=== PATIENT | female | born 1960 | race Caucasian/White ===

== ENCOUNTER 2017-07-27 05:12 | Emergency (ER) | payer MEDICAID ==
[2017-07-27] MEDS ORDERED: Sodium Chloride 0.9% 1,000 ML IV SCH (05:15)
[2017-07-27] MEDS ORDERED: Nitroglycerin/D5W 25 MG/250 ML BOTTLE ONE (05:21)
--- NOTE | 2017-07-27 05:22 | EDM.PDOC ---
<OfficerBinu - Last Filed: 07/27/17 06:30> ED HPI GENERAL MEDICAL PROBLEM - General Stated Complaint: MED[facility] Time Seen by Provider: 07/27/17 05:18 Source of Information: Reports: Patient, EMS, RN Notes Reviewed History Limitations: Reports: No Limitations - History of Present Illness INITIAL COMMENTS - FREE TEXT/NARRATIVE: 57-year-old female presents emergency department today via EMS services complaint chest pain. She states the chest pain started initially around 9 PM she described more of a heartburn feeling it resolved and then returned earlier this morning she did have nausea and vomiting she did feel short of breath is not diaphoretic does not use tobacco products does have a family history with her brother having myocardial infarction age 50. 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: - Past Surgical History HEENT Surgical History: Reports: Tonsillectomy Social & Family History - Family History HEENT: Reports: None Cardiac: Reports: IN Other Cardiac Family History: Dad and brother had IN Hematologic: Reports: Other (See Below) Other Hematologic Family History: Dad passed blood clot Immunologic: Reports: None Oncologic: Reports: None - Tobacco Use Smoking Status *Q: Never Smoker Second Hand Smoke Exposure: No - Caffeine Use Caffeine Use: Reports: Soda Other Caffeine Use: 4 cans of pop a day - Alcohol Use Days Per Week of Alcohol Use: 2 Number of Drinks Per Day: 6 Total Drinks Per Week: 12 - Recreational Drug Use Recreational Drug Use: No ED ROS GENERAL - Review of Systems Review Of Systems: See Below Constitutional: Reports: No Symptoms HEENT: Reports: No Symptoms Respiratory: Reports: Shortness of Breath Cardiovascular: Reports: Chest Pain GI/Abdominal: Reports: Abdominal Pain, Nausea, Vomiting : Reports: No Symptoms Musculoskeletal: Reports: No Symptoms Skin: Reports: No Symptoms Neurological: Reports: No Symptoms ED EXAM, GENERAL - Physical Exam Exam: See Below Free Text/Narrative:: General: Female mild discomfort secondary to pain, alert and oriented x3 HEENT: head is atraumatic normocephalic, eyes pupils equal round reactive to light, sclera clear no conjunctivitis appreciated. Ears tympanic membranes clear and adames landmarks and light reflex are present bilaterally canals are clear. Nose no septal deviation, nares are clear, no blood present. Mouth mucosa is moist and pink no erythema or exudate noted in soft palate, tongue is midline uvula is midline, dentition is intact. Neck: Supple no thyromegaly no tracheal deviation. Nodes: Cervical nodes subclavicular nodes nontender no palpable lymphadenopathy noted. Lungs: clear to auscultation bilaterally with symmetrical respirations, no adventitious noise appreciated. CV: Regular rate and rhythm S1 and S2 appreciated no murmurs rubs or gallops noted. Abdomen: Soft, nontender, no palpable masses or organomegaly appreciated, no distention no guarding bowel sounds are present, . Neuro: Cranial nerves II through XII grossly intact Skin: Warm and dry, intact Extremities: No lower extremity edema appreciated, Course - Vital Signs Last Recorded V/S: Last Vital Signs Temp 36.8 C 07/27/17 05:24 Pulse 117 H 07/27/17 08:15 Resp 18 07/27/17 08:15 BP 132/74 07/27/17 08:15 Pulse Ox 95 07/27/17 08:15 - Orders/Labs/Meds Orders: Active Orders 24 hr Category Date Time Status Cardiac Monitoring [RC] .As Directed Care 07/27/17 05:18 Active EKG Documentation Completion [RC] ASDIRECTED Care 07/27/17 05:19 Active Ang Chest [CT] Stat Exams 07/27/17 06:25 Taken Chest 1V Frontal [CR] Stat Exams 07/27/17 05:19 Taken Iopamidol [Isovue-370 (76%)] Med 07/27/17 07:00 Active 100 ml IV . DIRECTED Morphine Med 07/27/17 05:18 Active 2 mg IVPUSH Q10M PRN Nitroglycerin/D5W [Nitroglycerin 25 MG/D5W 250 ML] Med 07/27/17 05:30 Active 25 mg in 250 ml IV TITRATE Sodium Chloride 0.9% [Normal Saline] 1,000 ml Med 07/27/17 05:15 Active IV ASDIRECTED Sodium Chloride 0.9% [Normal Saline] 100 ml Med 07/27/17 07:00 Active IV ASDIRECTED Sodium Chloride 0.9% [Saline Flush] Med 07/27/17 06:47 Active 10 ml FLUSH ASDIRECTED PRN EKG 12 Lead [EK] Stat Ther 07/27/17 05:19 Ordered Medication Orders Nitroglycerin/Dextrose (Nitroglycerin 25 Mg/D5w 250 Ml) 25 mg in 250 mls @ 6 mls/hr IV TITRATE JOSE; 10 MCG/MIN PRN Reason: Protocol Last Titration: 07/27/17 06:37 Dose: 0 mcg/min, 0 mls/hr Titration: 07/27/17 06:25 Dose: 5 mcg/min, 3 mls/hr Admin: 07/27/17 05:30 Dose: 10 mcg/min, 6 mls/hr Sodium Chloride (Normal Saline) 1,000 mls @ 50 mls/hr IV ASDIRECTED JOSE Last Admin: 07/27/17 05:15 Dose: 50 mls/hr Sodium Chloride (Normal Saline) 100 mls @ 3 mls/sec IV ASDIRECTED JOSE Last Admin: 07/27/17 07:20 Dose: 3 mls/sec Iopamidol (Isovue-370 (76%)) 100 ml IV . DIRECTED JOSE Last Admin: 07/27/17 07:20 Dose: 100 ml Morphine Sulfate (Morphine) 2 mg IVPUSH Q10M PRN PRN Reason: Chest Pain Stop: 07/28/17 05:18 Last Admin: 07/27/17 06:29 Dose: 2 mg Admin: 07/27/17 05:32 Dose: 2 mg Sodium Chloride (Saline Flush) 10 ml FLUSH ASDIRECTED PRN PRN Reason: Keep Vein Open Last Admin: 07/27/17 07:20 Dose: 10 ml Labs: Laboratory Tests 07/27/17 07/27/17 07/27/17 Range/Units 05:35 05:35 05:39 WBC 13.6 H (4.5-11.0) K/uL RBC 4.68 (3.30-5.50) M/uL Hgb 14.0 (12.0-15.0) g/dL Hct 41.3 (36.0-48.0) % MCV 88 (80-98) fL MCH 30 (27-31) pg MCHC 34 (32-36) % Plt Count 250 (150-400) K/uL Neut % (Auto) 82 H (36-66) % Lymph % (Auto) 10 L (24-44) % [place] % (Auto) 7 H (2-6) % Eos % (Auto) 1 L (2-4) % Baso % (Auto) 0 (0-1) % Sodium 136 L (140-148) mmol/L Potassium 3.6 (3.6-5.2) mmol/L Chloride 102 (100-108) mmol/L Carbon Dioxide 21 (21-32) mmol/L Anion Gap 16.6 H (5.0-14.0) mmol/L BUN 13 (7-18) mg/dL Creatinine 0.7 (0.6-1.0) mg/dL Est Cr Clr Drug Dosing 71.82 mL/min Estimated GFR (MDRD) > 60 (>60) Glucose 122 H (74-106) mg/dL Calcium 8.6 (8.5-10.1) mg/dL Total Bilirubin 0.3 (0.2-1.0) mg/dL AST 37 (15-37) U/L ALT 52 (12-78) U/L Alkaline Phosphatase 92 (46-116) U/L CK-MB (CK-2) 0.9 (0-3.6) mg/mL Troponin I < 0.017 (0.000-0.056) ng/mL NT-Pro-B Natriuret Pep 16 (5-125) pg/mL Total Protein 6.9 (6.4-8.2) g/dL Albumin 3.4 (3.4-5.0) g/dL Globulin 3.5 (2.3-3.5) g/dL Albumin/Globulin Ratio 1.0 L (1.2-2.2) Ethyl Alcohol mg/dL 07/27/17 07/27/17 Range/Units 07:11 08:45 WBC (4.5-11.0) K/uL RBC (3.30-5.50) M/uL Hgb (12.0-15.0) g/dL Hct (36.0-48.0) % MCV (80-98) fL MCH (27-31) pg MCHC (32-36) % Plt Count (150-400) K/uL Neut % (Auto) (36-66) % Lymph % (Auto) (24-44) % [place] % (Auto) (2-6) % Eos % (Auto) (2-4) % Baso % (Auto) (0-1) % Sodium (140-148) mmol/L Potassium (3.6-5.2) mmol/L Chloride (100-108) mmol/L Carbon Dioxide (21-32) mmol/L Anion Gap (5.0-14.0) mmol/L BUN (7-18) mg/dL Creatinine (0.6-1.0) mg/dL Est Cr Clr Drug Dosing mL/min Estimated GFR (MDRD) (>60) Glucose (74-106) mg/dL Calcium (8.5-10.1) mg/dL Total Bilirubin (0.2-1.0) mg/dL AST (15-37) U/L ALT (12-78) U/L Alkaline Phosphatase (46-116) U/L CK-MB (CK-2) (0-3.6) mg/mL Troponin I < 0.017 (0.000-0.056) ng/mL NT-Pro-B Natriuret Pep (5-125) pg/mL Total Protein (6.4-8.2) g/dL Albumin (3.4-5.0) g/dL Globulin (2.3-3.5) g/dL Albumin/Globulin Ratio (1.2-2.2) Ethyl Alcohol < 3 mg/dL Meds: Medications Generic Name Dose Route Start Last Admin Trade Name Juan J PRN Reason Stop Dose Admin Nitroglycerin/Dextrose 25 mg in 250 mls @ 6 mls/hr 07/27/17 05:30 07/27/17 06 :37 Nitroglycerin 25 Mg/D5w 250 Ml IV 0 mcg/min TITRATE JOSE 0 mls/hr Protocol Titration 10 MCG/MIN Sodium Chloride 1,000 mls @ 50 mls/hr 07/27/17 05:15 07/27/17 05:15 Normal Saline IV 50 mls/hr ASDIRECTED JOSE Administration Sodium Chloride 100 mls @ 3 mls/sec 07/27/17 07:00 07/27/17 07:20 Normal Saline IV 3 mls/sec ASDIRECTED JOSE Administration Iopamidol 100 ml 07/27/17 07:00 07/27/17 07:20 Isovue-370 (76%) IV 100 ml . DIRECTED JOSE Administration Morphine Sulfate 2 mg 07/27/17 05:18 07/27/17 06:29 Morphine IVPUSH 07/28/17 05:18 2 mg Q10M PRN Administration Chest Pain Sodium Chloride 10 ml 07/27/17 06:47 07/27/17 07:20 Saline Flush FLUSH 10 ml ASDIRECTED PRN Administration Keep Vein Open Discontinued Medications Generic Name Dose Route Start Last Admin Trade Name Juan J PRN Reason Stop Dose Admin Al Hydroxide/Mg Hydroxide 30 ml 07/27/17 09:27 07/27/17 09:36 Mag-Al Plus PO 07/27/17 09:28 30 ml ONETIME ONE Administration Al Hydroxide/Mg Hydroxide 15 0 ml 07/27/17 08:20 07/27/17 08:35 ml/ Lidocaine HCl 15 ml PO 07/27/17 08:21 30 ml ONETIME ONE Administration Nitroglycerin/Dextrose Confirm 07/27/17 05:21 07/27/17 05:31 Nitroglycerin 25 Mg/D5w 250 Ml Administered 07/27/17 05:22 Not Given Dose 25 mg in 250 mls @ as directed .ROUTE .STK-MED ONE Pantoprazole Sodium 40 mg 07/27/17 09:05 07/27/17 09:30 Protonix Iv IVPUSH 07/27/17 09:06 40 mg ONETIME ONE Administration - Re-Assessments/Exams Free Text/Narrative Re-Assessment/Exam: 07/27/17 06:30 Heart score of 4 Departure - Departure Disposition: Home, Self-Care 01 Clinical Impression: GERD (gastroesophageal reflux disease) Referrals: PCP,None [Primary Care Provider] - Care Plan Goals: PROTONIX 20MG BID FOR 1 WEEK AND THEN 1 TAB DAILY, MAALOX 2 TABLESSPOON AFTER MEALS AND AT BEDTIME, SEE OWN PHYSIAN ANS SHE SHOULD HAVE A GASTRO AND A STRESS TEST-CARDIAC. SEND A COPY OF HER LAB WORK WITH HER, A COPY OF THE CHEST CAT SCAN RPORT AND A COPY OF HER EKG. sHE SHOULD TAKE THAT TO HR OWN PHYSIAN, RTC IF FURTHER SEVERE SYMPTOMS. <Kely Manzanares - Last Filed: 07/27/17 10:16> Course - Re-Assessments/Exams Free Text/Narrative Re-Assessment/Exam: 07/27/17 10:09 PT HAD A CAT SCAN OF THE CHEST -- THIS PROVED TO BE NORMAL. sHE WAS GIVEN A gi COCKTAIL WHICH GAVE HER COMPLETE RELIEF. SHE THEN GOT SOME BREAKFAST AND TH MINUTE SHE DRANK SOME ORANGE JUICE SHE STARTED TO HAVE THE BURNING. sHE WAS THEN GIVEN PROTONIX AND MAALOX AND ONCE GAIN HAD COMPLETE RELIEF. sHE HAD A SECOND TROP WHICH WAS NORMAL. Departure - Departure Time of Disposition: 10:13 Condition: Fair
[2017-07-27] MEDS ORDERED: Nitroglycerin/D5W 25 MG/250 ML BOTTLE IV SCH (05:30)
[2017-07-27] MEDS: Morphine 2 MG/ML Syringe IVPUSH PRN ×2 (05:32→06:29)
[2017-07-27] MEDS ORDERED: Sodium Chloride 0.9% 10 ML Syringe FLUSH PRN (06:47)
[2017-07-27] MEDS ORDERED: Sodium Chloride 0.9% 100 ML IV SCH (07:00)
[2017-07-27] MEDS ORDERED: Iopamidol 755 Mg/ML 100 ML Bottle IV SCH (07:00)
[2017-07-27 08:16] VITALS: BP 132/74
[2017-07-27] MEDS ORDERED: Alum Hydrox/Mag Hydrox/Simeth 15 ML, Lidocaine 2% 15 ML PO ONE ×2 (08:20)
[2017-07-27] MEDS ORDERED: Pantoprazole 40 MG Vial IVPUSH ONE (09:05)
[2017-07-27] MEDS ORDERED: Aluminum Hydroxide/Magnesium Hydroxide/Simethicone Susp 30 ML Cup PO ONE (09:27)
--- NOTE | 2017-07-29 09:22 | CR ---
Chest 1V Frontal INDICATION: Chest Pain COMPARISON: No prior chest x-ray. CT chest 06/20/2016 FINDINGS: AP portable chest. Heart size normal. Mild vascular congestion. No focal consolidations, pleural effusions or signs of o vert pulmonary edema.
== END 2017-07-27 10:45 | disposition home or self-care (01) ==
LOC: JP.ED 05:12
DX: K21.9 Gastro-esophageal reflux disease without esophagitis (principal); Z88.8 Allergy status to other drugs, medicaments and biological substances
CPT/HCPCS: 36415; 71045; 71275; 80053; 82553; 83880; 84484; 85025; 93005; 96374; 96375; 99285; A9270; C9113; G0480; J2270; J7030; J7040; J7050; Q9967